=== PATIENT | female | born 1960 | race Caucasian/White ===

== ENCOUNTER 2016-04-18 14:51 | Emergency (ER) | payer OTHER ==
[2016-04-18 15:19] VITALS: BP 153/77
[2016-04-18] MEDS ORDERED: ZOFRAN IV ONE (15:30)
[2016-04-18] MEDS ORDERED: DILAUDID IV ONE (15:30)
[2016-04-18 15:40] LABS: MANUAL DIFF NEEDED? NO
[2016-04-18 15:42] LABS: BASO% 0.4 % (0.0-0.8); EOS# 0.09 X1000 (0.0-0.7); EOS% 0.9 % (0.0-10.0); HEMATOCRIT 40.5 % (37.0-47.0); HEMOGLOBIN 13.7 g/dL (12.0-16.0); IMM GRAN# 0.07 X1000 (0.0-0.04); IMM GRAN% 0.7 % (0.0-0.5); LYMPH% 23.8 % (20.5-51.1); MCH 32.3 PG (27-31); MCHC 33.8 g/dL (33-37); MCV 95.5 FL (81-99); MONO# 0.46 X1000 (0.11-0.59); MONO% 4.6 % (1.7-9.3); MPV 10.2 FL (7.4-10.4); NEUT% 69.6 % (42.2-75.2); PLT 235 X1000 (130-400); RBC 4.24 XMIL (4.2-5.4)
[2016-04-18 16:06] LABS: AGAP 14; ALBUMIN 4.6 g/dL (3.5-5.0); ALKALINE PHOSPHATASE 142 U/L (32-104); BUN 15 mg/dL (8-22); CALCIUM 10.6 mg/dL (8.8-10.2); CHLORIDE 100 mmol/L (98-107); COSMO 283; GOT 429 U/L (10-30); GPT 243 U/L (10-36); POTASSIUM 3.6 mmol/L (3.5-5.1); SODIUM 138 mmol/L (136-145); TCO2 24 mmol/L (25-35); TOTAL PROTEIN 8.7 g/dL (6.3-8.3)
--- NOTE | 2016-04-18 17:24 | Diag Imaging Result Document ---
PROCEDURE NAME: THORAX/ABDOMEN/PELVIS - 04/18/2016 CT THORAX WITH CONTRAST EXAM: FINDINGS: Examination performed with intravenous contrast. A dose reduction protocol was used. There are fractures of the lateral to anterolateral right 4th, 5th, 6th, 7th and 8th ribs. The right 5th rib is fractured both laterally and anterolaterally. There is a small mild subcutaneous emphysema, most of which is located near the anterolateral right 5th rib fracture. There is a possible tiny pneumothorax at the medial right apex. There is an apparent tiny amount of pneumomediastinum at the anterior inferiormost mediastinum on the right. There is no pleural effusion identified. The lungs appear clear except for mild dependent atelectasis. There is no mediastinal hematoma or pericardial fluid identified. IMPRESSION: Fractures of lateral to anterolateral right 4th, 5th, 6th, 7th, and 8th ribs. Possible tiny pneumothorax at medial right apex. Apparent minimal pneumomediastinum at anterior inferiormost mediastinum on the right. CT ABDOMEN AND PELVIS WITH CONTRAST: FINDINGS: Exam performed with intravenous contrast. A dose-reduction protocol was used. No comparison exam. The liver is enlarged and is of diffusely decreased attenuation, consistent with fatty infiltration. There is no focal liver lesion identified. There is no evidence of injury to the liver. 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 There is no evidence of injury to the spleen, adrenal glands, pancreas, or kidneys. There is no peritoneal or retroperitoneal hematoma identified. There is no free peritoneal fluid identified. There is no free intraperitoneal air identified. There is no evidence of bowel obstruction. The appendix is unremarkable. There is mild uncomplicated colonic diverticulosis. The visualized bony structures appear grossly intact. There are lower lumbar spine degenerative changes noted. IMPRESSION: 1. Hepatomegaly with fatty infiltration of the liver. 2. No evidence of injury to the abdomen or pelvis. No free fluid. Verbal results provided to Dr. Ashraf at approximately 5:00 p.m. on 04/18/2016. [facility]
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
== END 2016-04-18 18:10 | disposition short-term general hospital (02) ==
LOC: P.ED 14:51
DX: S27.0XXA Traumatic pneumothorax, initial encounter (principal); S22.41XA Multiple fractures of ribs, right side, initial encounter for closed fracture; J98.2 Interstitial emphysema; R16.0 Hepatomegaly, not elsewhere classified; K76.0 Fatty (change of) liver, not elsewhere classified; R10.9 Unspecified abdominal pain; M79.1 Myalgia; R00.0 Tachycardia, unspecified; R10.819 Abdominal tenderness, unspecified site; I10 Essential (primary) hypertension; E78.5 Hyperlipidemia, unspecified; G89.29 Other chronic pain; E11.9 Type 2 diabetes mellitus without complications; F41.9 Anxiety disorder, unspecified; Z79.899 Other long term (current) drug therapy; V09.09XA Pedestrian injured in nontraffic accident involving other motor vehicles, initial encounter
CPT/HCPCS: 71260; 74177; 80053; 85025; 94799; 96374; 96375; J1170; J2405; Q9967